=== PATIENT | female | born 1955 | race Caucasian/White ===

== ENCOUNTER → 2017-08-28 | Outpatient (REF) | payer OTHER | LOC: M LAB REF 13:16 | DX: N39.41 Urge incontinence (principal) ==

== ENCOUNTER → 2018-08-24 | Outpatient (REF) | payer OTHER ==
[2018-08-24 19:10] LABS: APPEARANCE, URINE MANUAL CLEAR (CLEAR); BILIRUBIN, URINE MANUAL NEGATIVE (NEGATIVE); BLOOD URINE MANUAL POSITIVE (NEGATIVE); COLOR, URINE MANUAL YELLOW (YELLOW); GLUCOSE, URINE (UA) MANUAL NEGATIVE (NEGATIVE); KETONE, URINE MANUAL NEGATIVE (NEGATIVE); LEUKOCYTE ESTERASE, URINE MAN NEGATIVE (NEGATIVE); NITRITE, URINE MANUAL NEGATIVE (NEGATIVE); PH,URINE MAN 7.5 UNITS (5.0 - 7.0); PROTEIN, URINE MANUAL NEGATIVE (NEGATIVE); SPECIFIC GRAVITY,URINE MANUAL 1.005 (1.002-1.035); UROBILINOGEN, URINE MANUAL NORMAL (NORMAL)
[2018-08-24 19:16] LABS: BACTERIA, URINE SMALL AMOUNT; HYALINE CAST, URINE NONE SEEN /lpf (0-1); RBC, URINE 0-1 /hpf (0-3); SQUAMOUS EPITHELIAL CELL URINE SMALL AMOUNT /hpf (SMALL AMT); WBC, URINE 0-1 /hpf (0-3)
== END ==
LOC: M SMT 17:19
PROVIDERS: ATTEND Nurse Practitioner Family
DX: R31.9 Hematuria, unspecified (principal)

== ENCOUNTER 2018-11-15 15:31 | Emergency (ER) | payer OTHER ==
[~2018-11-15] VITALS: Ht 165.1 cm; Wt 140.3 kg
[2018-11-15] MEDS ORDERED: CETI10CA2 PO (16:26)
[2018-11-15] MEDS ORDERED: ECOT81TA5 PO (16:26)
[2018-11-15] MEDS ORDERED: POTA1TAB23 PO (16:26)
[2018-11-15] MEDS ORDERED: PARO20TA3 PO (16:26)
[2018-11-15] MEDS ORDERED: LISI-538 PO (16:26)
[2018-11-15] MEDS ORDERED: INDA125TA PO (16:27)
[2018-11-15] MEDS ORDERED: KETOROLAC 30 MG/ML VIAL (J1885) IV ONE (17:15)
[2018-11-15 17:34] LABS: BASO # 0.1 10^3/uL (0.0-0.2); BASO % 0.9 % (0.0-1.0); EOS # 0.1 10^3/uL (0.0-0.50); EOS % 0.8 % (0.0-3.0); HEMATOCRIT 48.5 % (36.0-47.0); HEMOGLOBIN 15.6 g/dl (12.0-15.5); LYMPH # 2.1 10^3/uL (1.5-4.5); LYMPH % 21.8 % (24.0-44.0); MEAN CORPUSCULAR HEMOGLOBIN 29.2 pg (27.0-33.0); MEAN CORPUSCULAR HGB CONC 32.2 g/dl (32.0-36.5); MEAN CORPUSCULAR VOLUME 90.7 fl (80.0-96.0); MONO # 0.7 10^3/uL (0.0-0.8); MONO % 7.5 % (0.0-5.0); NEUTROPHILS # 6.6 10^3/uL (1.8-7.7); NEUTROPHILS % 68.5 % (36.0-66.0); PLATELET COUNT, AUTOMATED 334 10^3/uL (150-450); RED BLOOD COUNT 5.35 10^6/uL (4.00-5.40); WHITE BLOOD COUNT 9.7 10^3/uL (4.0-10.0)
[2018-11-15 18:04] LABS: CALCIUM LEVEL 9.1 MG/DL (8.8-10.2); CREATININE FOR GFR 1.18 MG/DL (0.55-1.30); GLOMERULAR FILTRATION RATE 49.4 (>45); POTASSIUM SERUM 4.7 MEQ/L (3.5-5.1)
[2018-11-15] MEDS ORDERED: KETO10TAB PO (18:57)
[2018-11-15 19:22] VITALS: BP 132/68
--- NOTE | 2018-11-16 07:28 | REP ---
DEEP VENOUS ULTRASONOGRAPHY RIGHT THIGH, RULE OUT DVT: REASON: Pain and swelling TECHNIQUE: Multiple ultrasonographic images of the deep venous structures of the thigh were obtained from the common femoral vein to the popliteal vein along with Doppler interrogation and color flow Doppler images. FINDINGS: There is no abnormal echogenic material seen within any of the visualized deep venous structures that would suggest acute thrombosis. Coaptation is unremarkable throughout. Doppler interrogation shows an expected response to respiratory variability and augmentation. The color flow images show what appears to be a normal vascular pattern throughout. In the posterior popliteal soft tissues, there is a 3.5 x 1.8 x 1.4 cm sized mixed echo structure, likely a Stewart's cyst. IMPRESSION: 1. No evidence of a DVT. 2. Evidence to suggest a Stewart's cyst. Electronically Signed by Jorge Underwood DO 11/16/2018 04:30 P
== END 2018-11-15 19:23 | disposition home or self-care (01) ==
LOC: M ED 15:31
DX: M71.21 Synovial cyst of popliteal space [Baker], right knee (principal); I10 Essential (primary) hypertension; I82.409 Acute embolism and thrombosis of unspecified deep veins of unspecified lower extremity; K44.9 Diaphragmatic hernia without obstruction or gangrene; F17.210 Nicotine dependence, cigarettes, uncomplicated; Z79.899 Other long term (current) drug therapy
CPT/HCPCS: 80048; 83605; 85025; 93971; 94760; 96374; 99284; J1885

== ENCOUNTER → 2019-02-18 | Outpatient (REF) | payer OTHER ==
[~2019-02-18] MED LIST: CETI10CA2 PO; ECOT81TA5 PO; INDA125TA PO; KETO10TAB PO; LISI-538 PO; PARO20TA3 PO; POTA1TAB23 PO
== END ==
LOC: M LAB REF 17:09
PROVIDERS: ATTEND Nurse Practitioner Adult Health
DX: N18.3 Chronic kidney disease, stage 3 (moderate) (principal)

== ENCOUNTER → 2021-07-09 | Outpatient (REF) | payer MEDICARE, OTHER ==
[~2021-07-09] MED LIST changes: -LISI-538 PO; +LISI20TA33 PO
[2021-07-09 17:02] LABS: BACTERIA, URINE AUTO NEGATIVE (NEGATIVE); RBC, URINE AUTO 4 /HPF (0-3); SQUAMOUS EPITHELIAL CELL UR AU 4 /HPF (0-6); WBC, URINE AUTO 1 /HPF (0-3)
== END ==
LOC: M LAB REF 16:32
PROVIDERS: ATTEND Nurse Practitioner Adult Health
DX: R31.9 Hematuria, unspecified (principal)

== ENCOUNTER → 2021-08-08 | Outpatient (REF) | payer MEDICARE, OTHER ==
[2021-08-08 17:25] LABS: APPEARANCE, URINE CLEAR (CLEAR); BACTERIA, URINE AUTO NEGATIVE (NEGATIVE); BILIRUBIN, URINE AUTO NEGATIVE (NEGATIVE); BLOOD, URINE BLOOD 1+ (NEGATIVE); COLOR, URINE STRAW (YELLOW); GLUCOSE, URINE (UA) AUTO NEGATIVE (NEGATIVE); KETONE, URINE AUTO NEGATIVE (NEGATIVE); LEUKOCYTE ESTERASE, URINE AUTO TRACE (NEGATIVE); NITRITE, URINE AUTO NEGATIVE (NEGATIVE); PROTEIN, URINE AUTO NEGATIVE (NEGATIVE); RBC, URINE AUTO 1 /HPF (0-3); SPECIFIC GRAVITY URINE AUTO 1.006 (1.002-1.035); SQUAMOUS EPITHELIAL CELL UR AU 2 /HPF (0-6); UROBILINOGEN, URINE AUTO 0.2 mg/dL (0.0-2.0); WBC, URINE AUTO 1 /HPF (0-3)
== END ==
LOC: M SMT 16:44
PROVIDERS: ATTEND Physician Assistant
DX: R31.21 Asymptomatic microscopic hematuria (principal)

== ENCOUNTER → 2022-02-04 | Outpatient (REF) | payer MEDICARE, OTHER ==
[2022-02-04 17:47] LABS: APPEARANCE, URINE CLEAR (CLEAR); BACTERIA, URINE AUTO NEGATIVE (NEGATIVE); BILIRUBIN, URINE AUTO NEGATIVE (NEGATIVE); BLOOD, URINE BLOOD 1+ (NEGATIVE); COLOR, URINE YELLOW (YELLOW); GLUCOSE, URINE (UA) AUTO NEGATIVE (NEGATIVE); KETONE, URINE AUTO NEGATIVE (NEGATIVE); LEUKOCYTE ESTERASE, URINE AUTO NEGATIVE (NEGATIVE); NITRITE, URINE AUTO NEGATIVE (NEGATIVE); PROTEIN, URINE AUTO NEGATIVE (NEGATIVE); RBC, URINE AUTO 1 /HPF (0-3); SPECIFIC GRAVITY URINE AUTO 1.005 (1.002-1.035); SQUAMOUS EPITHELIAL CELL UR AU 2 /HPF (0-6); UROBILINOGEN, URINE AUTO 0.2 mg/dL (0.0-2.0); WBC, URINE AUTO 0 /HPF (0-3)
== END ==
LOC: M SMT 16:38
PROVIDERS: ATTEND Urology
DX: R31.21 Asymptomatic microscopic hematuria (principal)

== ENCOUNTER → 2022-08-07 | Outpatient (REF) | payer MEDICARE, OTHER ==
[~2022-08-07] MED LIST changes: +INDA1.253 PO; -INDA125TA PO
[2022-08-07 17:55] LABS: APPEARANCE, URINE MANUAL CLEAR (CLEAR); BILIRUBIN, URINE MANUAL NEGATIVE (NEGATIVE); BLOOD URINE MANUAL TRACE (NEGATIVE); COLOR, URINE MANUAL YELLOW (YELLOW); GLUCOSE, URINE (UA) MANUAL NEGATIVE (NEGATIVE); KETONE, URINE MANUAL NEGATIVE (NEGATIVE); LEUKOCYTE ESTERASE, URINE MAN TRACE (NEGATIVE); NITRITE, URINE MANUAL NEGATIVE (NEGATIVE); PROTEIN, URINE MANUAL NEGATIVE (NEGATIVE); UROBILINOGEN, URINE MANUAL NORMAL (NORMAL)
[2022-08-07 19:54] LABS: SQUAMOUS EPITHELIAL CELL URINE MOD AMOUNT /hpf (SMALL AMT)
[2022-08-07 19:55] LABS: RBC, URINE 0-1 /hpf (0-3)
[2022-08-07 19:56] LABS: BACTERIA, URINE SMALL AMOUNT; HYALINE CAST, URINE NONE SEEN /lpf (0-1)
== END ==
LOC: M SMT 17:06
PROVIDERS: ATTEND Physician Assistant
DX: R31.21 Asymptomatic microscopic hematuria (principal)

== ENCOUNTER → 2022-12-10 | Outpatient (REF) | payer MEDICARE, OTHER | LOC: M LAB REF 16:34 | PROVIDERS: ATTEND Nurse Practitioner Adult Health | DX: N39.0 Urinary tract infection, site not specified (principal) ==

== ENCOUNTER 2024-04-18 11:40 | Emergency (ER) | payer MEDICARE, OTHER ==
[~2024-04-18] VITALS: Ht 165.1 cm; Wt 158.4 kg
[~2024-04-18 11:40] MED LIST changes: +ALBU8.5H; +AMLO1TAB24 PO; +METF-838 PO; +ROSU10TA61 PO
[2024-04-18 11:51] VITALS: BP 174/75; TEMP 98.7; O2SAT 98
[2024-04-18] MEDS: IBUPROFEN 600MG TAB PO ONE (14:30)
== END 2024-04-18 14:33 | disposition home or self-care (01) ==
LOC: M ED 11:40
DX: M16.11 Unilateral primary osteoarthritis, right hip (principal); E11.9 Type 2 diabetes mellitus without complications; I10 Essential (primary) hypertension; F41.9 Anxiety disorder, unspecified; Z91.09 Other allergy status, other than to drugs and biological substances; Z79.51 Long term (current) use of inhaled steroids; Z79.84 Long term (current) use of oral hypoglycemic drugs; Z79.899 Other long term (current) drug therapy

== ENCOUNTER 2024-06-25 14:21 | Inpatient (IN) | payer MEDICARE, OTHER ==
[~2024-06-25] VITALS: Ht 165.1 cm; Wt 153.1 kg
[2024-06-25] MEDS: LIDOCAINE 5% (LIDODERM) PATCH TD SCH (09:00)
[~2024-06-25 14:21] MED LIST changes: -ALBU8.5H; +ALBU8.5H PO
[2024-06-25] MEDS: NORCO, ANEXSIA 5/325MG TABLET (HYDROcodone/ACETAMINOPHEN) PO ONE (15:11)
[2024-06-25 15:16] LABS: HEMATOCRIT 39.4 % (36.0-47.0); HEMOGLOBIN 12.7 g/dl (12.0-15.5); MEAN CORPUSCULAR HEMOGLOBIN 31.8 pg (27.0-33.0); MEAN CORPUSCULAR HGB CONC 32.2 g/dl (32.0-36.5); MEAN CORPUSCULAR VOLUME 98.7 fl (80.0-96.0); PLATELET COUNT, AUTOMATED 331 10^3/uL (150-450); RED BLOOD COUNT 3.99 10^6/uL (4.00-5.40); WHITE BLOOD COUNT 6.5 10^3/uL (4.0-10.0)
[2024-06-25 15:43] LABS: CALCIUM LEVEL 9.3 MG/DL (8.3-10.6); CREATININE FOR GFR 1.13 MG/DL (0.55-1.30); GLOMERULAR FILTRATION RATE 51.1 (>45); POTASSIUM SERUM 3.9 MMOL/L (3.5-5.1)
[2024-06-25] MEDS ORDERED: AMLO1TAB25 PO (17:44)
[2024-06-25] MEDS ORDERED: LISI30TA4 PO (17:44)
[2024-06-25] MEDS ORDERED: ASPI81TA26 PO (17:44)
[2024-06-25] MEDS ORDERED: HOME MED LIST COMPLETE! XX SCH (17:45)
[2024-06-25] MEDS ORDERED: BISACODYL 10MG SUPP PR PRN (18:00)
[2024-06-25] MEDS: KETOROLAC 30 MG/ML 1ML VIAL IV SCH (18:33)
[2024-06-25] MEDS ORDERED: SENNA 8.6 MG TAB (SENOKOT) PO SCH (21:00)
[2024-06-25 22:34] VITALS: BP 117/68; TEMP 97.3; O2SAT 94
[2024-06-25] MEDS: SENNA 8.6 MG TAB (SENOKOT) PO SCH (22:43)
[2024-06-25] MEDS: MOM 30ML SUSPENSION UDC PO SCH (22:43)
[2024-06-25] MEDS: GABAPENTIN 100 MG CAP PO SCH (22:43)
[2024-06-25] MEDS: ACETAMINOPHEN 500 MG TAB PO SCH (22:44)
[2024-06-25] MEDS: DOCUSATE SODIUM 100MG CAPSULE PO SCH (22:44)
[2024-06-25] MEDS: oxyCODONE 5MG TAB PO PRN (22:44)
[2024-06-25] MEDS: HEPARIN SOD (PORCINE) 5000UNITS/ML 1ML VIAL/SYRINGE SQ SCH (22:45)
[2024-06-26 04:00] VITALS: BP 127/83; TEMP 97.3; O2SAT 96
[2024-06-26] MEDS: ASPIRIN 81MG ENTERIC TABLET PO SCH (09:16)
[2024-06-26] MEDS: CETIRIZINE (ZyrTEC) 10 MG TAB PO SCH (09:16)
[2024-06-26] MEDS: PARoxetine 20MG TABLET PO SCH (09:19)
[2024-06-26] MEDS: PANTOPRAZOLE 40MG TAB (PROTONIX) PO SCH (09:19)
[2024-06-26] MEDS: ROSUVASTATIN 10 MG TAB (CRESTOR) PO SCH (09:19)
[2024-06-26 12:00] VITALS: BP 128/83; TEMP 97.2; O2SAT 96
[2024-06-26] MEDS: NYSTATIN 100,000 UNITS/GM TOPICAL PWD 15GM TOP SCH (13:06)
[2024-06-26 19:59] VITALS: BP 108/75; TEMP 97.7; O2SAT 96
[2024-06-27 04:00] VITALS: BP 119/73; TEMP 97.2; O2SAT 96
[2024-06-27 07:50] LABS: BASO # 0.1 10^3/uL (0.0-0.2); BASO % 0.9 % (0.0-1.0); EOS # 0.1 10^3/uL (0.0-0.5); EOS % 1.5 % (0.0-3.0); HEMATOCRIT 35.2 % (36.0-47.0); HEMOGLOBIN 11.3 g/dl (12.0-15.5); LYMPH % 14.4 % (24.0-44.0); MEAN CORPUSCULAR HEMOGLOBIN 32.1 pg (27.0-33.0); MEAN CORPUSCULAR HGB CONC 32.1 g/dl (32.0-36.5); MONO # 0.5 10^3/uL (0.0-0.8); MONO % 8.1 % (2.0-8.0); NEUTROPHILS % 74.7 % (36.0-66.0); PLATELET COUNT, AUTOMATED 292 10^3/uL (150-450); RED BLOOD COUNT 3.52 10^6/uL (4.00-5.40); WHITE BLOOD COUNT 6.7 10^3/uL (4.0-10.0)
[2024-06-27 08:14] LABS: CALCIUM LEVEL 8.4 MG/DL (8.3-10.6); CREATININE FOR GFR 1.78 MG/DL (0.55-1.30); GLOMERULAR FILTRATION RATE 30.3 (>45); POTASSIUM SERUM 4.5 MMOL/L (3.5-5.1)
[2024-06-27 12:00] VITALS: BP 112/64; TEMP 97.5; O2SAT 98
[2024-06-27] MEDS: NS (Normal Saline) 0.9% 1,000 ML IV ONE (15:54)
[2024-06-27] MEDS: traMADol 50 MG TAB PO SCH (15:59)
[2024-06-27 19:35] VITALS: BP 112/60; TEMP 97; O2SAT 98
[2024-06-28 04:03] VITALS: BP 117/58; TEMP 97.5; O2SAT 96
[2024-06-28 07:13] LABS: BASO # 0.1 10^3/uL (0.0-0.2); BASO % 0.9 % (0.0-1.0); EOS # 0.1 10^3/uL (0.0-0.5); EOS % 2.4 % (0.0-3.0); HEMATOCRIT 34.4 % (36.0-47.0); LYMPH # 1.1 10^3/uL (1.5-5.0); LYMPH % 19.8 % (24.0-44.0); MEAN CORPUSCULAR HEMOGLOBIN 31.8 pg (27.0-33.0); MEAN CORPUSCULAR VOLUME 99.4 fl (80.0-96.0); MONO # 0.5 10^3/uL (0.0-0.8); MONO % 8.9 % (2.0-8.0); NEUTROPHILS # 3.7 10^3/uL (1.5-8.5); NEUTROPHILS % 67.6 % (36.0-66.0); PLATELET COUNT, AUTOMATED 291 10^3/uL (150-450); RED BLOOD COUNT 3.46 10^6/uL (4.00-5.40); WHITE BLOOD COUNT 5.4 10^3/uL (4.0-10.0)
[2024-06-28 07:35] LABS: CALCIUM LEVEL 8.6 MG/DL (8.3-10.6); CREATININE FOR GFR 1.26 MG/DL (0.55-1.30); GLOMERULAR FILTRATION RATE 45.1 (>45); POTASSIUM SERUM 4.6 MMOL/L (3.5-5.1)
[2024-06-28] MEDS ORDERED: LIDOCAINE 5% (LIDODERM) PATCH TD SCH (10:25)
[2024-06-28] MEDS ORDERED: NALOXONE INJ 0.4MG/1ML VIAL IV PRN (10:30)
[2024-06-28] MEDS: oxyCODONE 5MG TAB PO ONE (11:02)
[2024-06-28 12:00] VITALS: BP 112/62; TEMP 97.3; O2SAT 99
[2024-06-28] MEDS: oxyCODONE 5MG TAB PO PRN (13:47)
[2024-06-28] MEDS: traMADol 50 MG TAB PO SCH (17:32)
[2024-06-28] MEDS: ACETAMINOPHEN 500 MG TAB PO SCH (17:32)
[2024-06-28 17:58] LABS: APPEARANCE, URINE CLEAR (CLEAR); BACTERIA, URINE AUTO NEGATIVE (NEGATIVE); BILIRUBIN, URINE AUTO NEGATIVE (NEGATIVE); BLOOD, URINE BLOOD 1+ (NEGATIVE); COLOR, URINE YELLOW (YELLOW); GLUCOSE, URINE (UA) AUTO NEGATIVE (NEGATIVE); KETONE, URINE AUTO TRACE mg/dL (NEGATIVE); LEUKOCYTE ESTERASE, URINE AUTO NEGATIVE (NEGATIVE); MUCUS, URINE SMALL (NEGATIVE); NITRITE, URINE AUTO NEGATIVE (NEGATIVE); PROTEIN, URINE AUTO NEGATIVE (NEGATIVE); RBC, URINE AUTO 11 /HPF (0-3); SQUAMOUS EPITHELIAL CELL UR AU 1 /HPF (0-6); UROBILINOGEN, URINE AUTO 0.2 mg/dL (0.0-2.0); WBC, URINE AUTO 2 /HPF (0-3)
[2024-06-28 19:50] VITALS: BP 131/75; TEMP 97.3; O2SAT 95
[2024-06-29 04:06] VITALS: BP 134/74; TEMP 97.3; O2SAT 96
[2024-06-29 06:57] LABS: BASO % 0.4 % (0.0-1.0); EOS # 0.1 10^3/uL (0.0-0.5); EOS % 1.3 % (0.0-3.0); HEMATOCRIT 35.7 % (36.0-47.0); HEMOGLOBIN 11.4 g/dl (12.0-15.5); LYMPH # 0.9 10^3/uL (1.5-5.0); LYMPH % 16.7 % (24.0-44.0); MEAN CORPUSCULAR HEMOGLOBIN 31.6 pg (27.0-33.0); MEAN CORPUSCULAR HGB CONC 31.9 g/dl (32.0-36.5); MEAN CORPUSCULAR VOLUME 98.9 fl (80.0-96.0); MONO # 0.5 10^3/uL (0.0-0.8); MONO % 9.1 % (2.0-8.0); NEUTROPHILS # 3.9 10^3/uL (1.5-8.5); NEUTROPHILS % 72.1 % (36.0-66.0); PLATELET COUNT, AUTOMATED 305 10^3/uL (150-450); RED BLOOD COUNT 3.61 10^6/uL (4.00-5.40); WHITE BLOOD COUNT 5.4 10^3/uL (4.0-10.0)
[2024-06-29 07:28] LABS: CALCIUM LEVEL 8.3 MG/DL (8.3-10.6); CREATININE FOR GFR 1.03 MG/DL (0.55-1.30); GLOMERULAR FILTRATION RATE 56.9 (>45); POTASSIUM SERUM 4.8 MMOL/L (3.5-5.1)
[2024-06-29 07:45] VITALS: BP 136/68; TEMP 97.7; O2SAT 95
[2024-06-29] MEDS ORDERED: PILL CUTTER 1 EACH XX ONE (09:10)
[2024-06-29] MEDS ORDERED: oxyCODONE 5MG TAB PO PRN (11:30)
[2024-06-29] MEDS: oxyCODONE 5MG TAB PO ONE (11:44)
[2024-06-29 11:59] VITALS: BP 138/78; TEMP 97.7; O2SAT 94
[2024-06-29 12:00] VITALS: BP 130/67; TEMP 97.7; O2SAT 95
[2024-06-29] MEDS: traMADol 50 MG TAB PO SCH (12:54)
[2024-06-29 19:52] VITALS: BP 122/58; TEMP 97; O2SAT 94
[2024-06-29] MEDS: RAMELTEON 8 MG TAB (ROZEREM) PO ONE (21:19)
[2024-06-30 04:06] VITALS: BP 133/82; TEMP 98.1; O2SAT 93
[2024-06-30 06:14] LABS: BASO % 0.4 % (0.0-1.0); EOS # 0.1 10^3/uL (0.0-0.5); EOS % 1.2 % (0.0-3.0); HEMATOCRIT 34.3 % (36.0-47.0); HEMOGLOBIN 11.2 g/dl (12.0-15.5); LYMPH % 20.7 % (24.0-44.0); MEAN CORPUSCULAR HEMOGLOBIN 32.1 pg (27.0-33.0); MEAN CORPUSCULAR HGB CONC 32.7 g/dl (32.0-36.5); MEAN CORPUSCULAR VOLUME 98.3 fl (80.0-96.0); MONO # 0.5 10^3/uL (0.0-0.8); MONO % 10.8 % (2.0-8.0); NEUTROPHILS # 3.3 10^3/uL (1.5-8.5); NEUTROPHILS % 66.3 % (36.0-66.0); PLATELET COUNT, AUTOMATED 291 10^3/uL (150-450); RED BLOOD COUNT 3.49 10^6/uL (4.00-5.40); WHITE BLOOD COUNT 4.9 10^3/uL (4.0-10.0)
[2024-06-30 06:43] LABS: BLOOD UREA NITROGEN 21 MG/DL (9-23); CARBON DIOXIDE LEVEL 29 MMOL/L (20-31); CHLORIDE LEVEL 100 MMOL/L (98-107); CREATININE FOR GFR 0.94 MG/DL (0.55-1.30); GLOMERULAR FILTRATION RATE > 60.0 (>45); GLUCOSE, FASTING 88 MG/DL (74-106); POTASSIUM SERUM 4.7 MMOL/L (3.5-5.1); SODIUM LEVEL 136 MMOL/L (136-145)
[2024-06-30] MEDS ORDERED: ACET-683 PO (07:27)
[2024-06-30] MEDS ORDERED: OXYC1CAP2 PO (07:35)
[2024-06-30] MEDS ORDERED: GABA-1171 PO (07:35)
[2024-06-30] MEDS ORDERED: TRAM50TA2 PO (07:35)
[2024-06-30] MEDS ORDERED: COLA100C5 PO (07:41)
[2024-06-30] MEDS ORDERED: PANT40TA29 PO (07:41)
[2024-06-30] MEDS ORDERED: BISA10SU PR (07:41)
[2024-06-30] MEDS ORDERED: CETI10TA PO (07:41)
[2024-06-30] MEDS ORDERED: SENO8.6T5 PO (07:41)
[2024-06-30] MEDS: oxyCODONE 5MG TAB PO ONE ×2 (08:30→12:41)
[2024-06-30 12:00] VITALS: BP 130/78; TEMP 97.6; O2SAT 95
[2024-06-30] MEDS ORDERED: oxyCODONE 5MG TAB PO PRN (13:30)
[2024-06-30 20:23] VITALS: BP 130/60; TEMP 97.3; O2SAT 97
[2024-07-01 04:17] VITALS: BP 121/64; TEMP 97.2; O2SAT 99
[2024-07-01 06:56] LABS: BASO % 0.6 % (0.0-1.0); EOS # 0.1 10^3/uL (0.0-0.5); EOS % 1.8 % (0.0-3.0); HEMOGLOBIN 11.3 g/dl (12.0-15.5); LYMPH # 1.1 10^3/uL (1.5-5.0); LYMPH % 20.7 % (24.0-44.0); MEAN CORPUSCULAR HEMOGLOBIN 31.9 pg (27.0-33.0); MEAN CORPUSCULAR HGB CONC 31.4 g/dl (32.0-36.5); MEAN CORPUSCULAR VOLUME 101.7 fl (80.0-96.0); MONO # 0.6 10^3/uL (0.0-0.8); MONO % 11.5 % (2.0-8.0); NEUTROPHILS # 3.3 10^3/uL (1.5-8.5); NEUTROPHILS % 64.6 % (36.0-66.0); PLATELET COUNT, AUTOMATED 284 10^3/uL (150-450); RED BLOOD COUNT 3.54 10^6/uL (4.00-5.40); WHITE BLOOD COUNT 5.1 10^3/uL (4.0-10.0)
[2024-07-01 07:21] LABS: BLOOD UREA NITROGEN 20 MG/DL (9-23); CARBON DIOXIDE LEVEL 29 MMOL/L (20-31); CHLORIDE LEVEL 100 MMOL/L (98-107); CREATININE FOR GFR 0.91 MG/DL (0.55-1.30); GLOMERULAR FILTRATION RATE > 60.0 (>45); GLUCOSE, FASTING 96 MG/DL (74-106); POTASSIUM SERUM 4.6 MMOL/L (3.5-5.1); SODIUM LEVEL 136 MMOL/L (136-145)
[2024-07-02 04:00] VITALS: BP 164/81; TEMP 97; O2SAT 98
[2024-07-02 07:53] LABS: BASO % 0.7 % (0.0-1.0); EOS # 0.1 10^3/uL (0.0-0.5); EOS % 1.8 % (0.0-3.0); HEMATOCRIT 36.5 % (36.0-47.0); HEMOGLOBIN 11.3 g/dl (12.0-15.5); LYMPH % 23.3 % (24.0-44.0); MEAN CORPUSCULAR HEMOGLOBIN 30.9 pg (27.0-33.0); MEAN CORPUSCULAR VOLUME 99.7 fl (80.0-96.0); MONO # 0.5 10^3/uL (0.0-0.8); MONO % 12.1 % (2.0-8.0); NEUTROPHILS # 2.8 10^3/uL (1.5-8.5); NEUTROPHILS % 61.4 % (36.0-66.0); PLATELET COUNT, AUTOMATED 287 10^3/uL (150-450); RED BLOOD COUNT 3.66 10^6/uL (4.00-5.40); WHITE BLOOD COUNT 4.5 10^3/uL (4.0-10.0)
[2024-07-02 08:21] LABS: BLOOD UREA NITROGEN 21 MG/DL (9-23); CALCIUM LEVEL 9.2 MG/DL (8.3-10.6); CARBON DIOXIDE LEVEL 32 MMOL/L (20-31); CHLORIDE LEVEL 100 MMOL/L (98-107); GLOMERULAR FILTRATION RATE > 60.0 (>45); GLUCOSE, FASTING 92 MG/DL (74-106); SODIUM LEVEL 136 MMOL/L (136-145)
[2024-07-02] MEDS: oxyCODONE 5MG TAB PO ONE (11:57)
[2024-07-02] MEDS ORDERED: oxyCODONE 5MG TAB PO PRN (16:00)
[2024-07-03 04:00] VITALS: BP 154/84; TEMP 97.3; O2SAT 98
[2024-07-03 07:44] LABS: BASO % 0.5 % (0.0-1.0); EOS # 0.1 10^3/uL (0.0-0.5); EOS % 1.6 % (0.0-3.0); HEMATOCRIT 37.1 % (36.0-47.0); HEMOGLOBIN 11.7 g/dl (12.0-15.5); LYMPH # 1.3 10^3/uL (1.5-5.0); MEAN CORPUSCULAR HEMOGLOBIN 31.5 pg (27.0-33.0); MEAN CORPUSCULAR HGB CONC 31.5 g/dl (32.0-36.5); MONO # 0.5 10^3/uL (0.0-0.8); MONO % 9.5 % (2.0-8.0); NEUTROPHILS # 3.5 10^3/uL (1.5-8.5); NEUTROPHILS % 63.5 % (36.0-66.0); PLATELET COUNT, AUTOMATED 321 10^3/uL (150-450); RED BLOOD COUNT 3.71 10^6/uL (4.00-5.40); WHITE BLOOD COUNT 5.6 10^3/uL (4.0-10.0)
[2024-07-03 08:16] LABS: CALCIUM LEVEL 9.4 MG/DL (8.3-10.6); CREATININE FOR GFR 1.04 MG/DL (0.55-1.30); GLOMERULAR FILTRATION RATE 56.3 (>45)
[2024-07-04] MEDS: oxyCODONE 5MG TAB PO PRN (03:44)
[2024-07-04 04:00] VITALS: BP 120/66; TEMP 97.3; O2SAT 98
[2024-07-04 04:44] VITALS: O2SAT 98
[2024-07-04 08:31] VITALS: BP 100/65
[2024-07-04 13:48] LABS: HEMATOCRIT 37.6 % (36.0-47.0); HEMOGLOBIN 11.8 g/dl (12.0-15.5); MEAN CORPUSCULAR HEMOGLOBIN 31.1 pg (27.0-33.0); MEAN CORPUSCULAR HGB CONC 31.4 g/dl (32.0-36.5); MEAN CORPUSCULAR VOLUME 99.2 fl (80.0-96.0); PLATELET COUNT, AUTOMATED 326 10^3/uL (150-450); RED BLOOD COUNT 3.79 10^6/uL (4.00-5.40); WHITE BLOOD COUNT 5.4 10^3/uL (4.0-10.0)
[2024-07-04 14:27] LABS: CALCIUM LEVEL 9.4 MG/DL (8.3-10.6); CREATININE FOR GFR 0.99 MG/DL (0.55-1.30); GLOMERULAR FILTRATION RATE 59.6 (>45); POTASSIUM SERUM 5.8 MMOL/L (3.5-5.1)
== END 2024-07-04 17:05 | disposition home health service (06) | DRG 553 ==
LOC: M ED 14:21 → EDBD 14:21 → M ED INP 17:15 → M MS5PR 22:20
PROVIDERS: ADMIT Internal Medicine Nephrology; ATTEND General Practice
DX: M16.0 Bilateral primary osteoarthritis of hip (principal); G92.8 Other toxic encephalopathy; Z68.43 Body mass index [BMI] 50.0-59.9, adult; N17.9 Acute kidney failure, unspecified; E66.2 Morbid (severe) obesity with alveolar hypoventilation; E87.1 Hypo-osmolality and hyponatremia; F32.A Depression, unspecified; L40.9 Psoriasis, unspecified; E78.5 Hyperlipidemia, unspecified; B37.2 Candidiasis of skin and nail; N18.30 Chronic kidney disease, stage 3 unspecified; I12.9 Hypertensive chronic kidney disease with stage 1 through stage 4 chronic kidney disease, or unspecified chronic kidney disease; E11.22 Type 2 diabetes mellitus with diabetic chronic kidney disease; T40.2X5A Adverse effect of other opioids, initial encounter; K59.00 Constipation, unspecified; K44.9 Diaphragmatic hernia without obstruction or gangrene; D64.9 Anemia, unspecified; R26.89 Other abnormalities of gait and mobility; R31.1 Benign essential microscopic hematuria; Z79.899 Other long term (current) drug therapy; Z79.82 Long term (current) use of aspirin